=== PATIENT | female | born 1985 | race Caucasian/White ===

== ENCOUNTER → 2016-10-13 | Outpatient (CLI) | payer BC, OTHER ==
[~2016-10-13] MED LIST: ALPR0.25 PO; CETI10TA24 PO; METF10002 PO
[2016-10-13 14:52] LABS: PATH.CAST-FLAG NOT PRESENT; SPERM-FLAG NOT PRESENT; SRC-FLAG NOT PRESENT; XTAL-FLAG NOT PRESENT; YLC-FLAG NOT PRESENT
== END | disposition home or self-care (01) ==
LOC: STAR 13:27
PROVIDERS: ATTEND Obstetrics & Gynecology
DX: Z01.818 Encounter for other preprocedural examination (principal); R10.2 Pelvic and perineal pain; G89.29 Other chronic pain
CPT/HCPCS: 36415; 81001; 84703; 85025

== ENCOUNTER 2016-10-26 13:27 | Day surgery (SDC) | payer BC, OTHER ==
[~2016-10-26] VITALS: Ht 157.5 cm; Wt 65.0 kg
[2016-10-26] MEDS: FENTANYL PF 100 MCG/2ML IV PRN ×2 (09:23→09:42)
[2016-10-26] MEDS: HYDROmorphone 1 MG/ML, 1ML IV PRN ×2 (09:45→09:55)
[2016-10-26] MEDS: OXYcodone/APAP 5/325MG TABLET PO PRN ×2 (10:40→14:50)
[~2016-10-26 13:27] MED LIST changes: +ACETAMINOPHEN 650 MG/20.3 ML UDC ONE; +BUPIVACAINE/PF-EPI 0.25% 1:200K ONE; +CEFAZOLIN 1,000 MG ONE; +DEXAMETHASONE 4 MG/ML, 1ML ONE; +FENTANYL PF 100 MCG/2ML ONE; +FENTANYL PF 250 MCG/5ML ONE; +FLUORESCEIN SODIUM 500 MG/5 ML ONE; +GLYCOPYRROLATE 0.2MG/1ML ONE; +HYDROmorphone 1 MG/ML, 1ML ONE; +KETOROLAC 30 MG/1 ML ONE; +METOCLOPRAMIDE 5 MG/ML, 2ML ONE; +MIDAZOLAM 1 MG/ML, 2ML ONE; +NEOSTIGMINE 1 MG/ML, 10ML ONE; +ONDANSETRON 2MG/ML, 2ML ONE; +OXYcodone 5 MG/5 ML ORAL.SOL UDC ONE; +PROPOFOL 10 MG/ML, 20ML ONE; +PROPOFOL 10 MG/ML, 50ML ONE; +ROCURONIUM 10 MG/ML ONE; +SCOPOLAMINE PATCH, 1.5MG PATCH.TD72 TD ONE; +SILVER NITRATE STICK TP ONE
[2016-10-26] MEDS ORDERED: OXYcodone 5 MG/5 ML ORAL.SOL UDC ONE (14:45)
[2016-10-26] MEDS ORDERED: KETOROLAC 30 MG/1 ML IVPush PRN (15:00)
[2016-10-26] MEDS ORDERED: ONDANSETRON 2MG/ML, 2ML IVPush PRN ×2 (15:00→15:30)
[2016-10-26] MEDS ORDERED: IBUPROFEN 600 MG TABLET PO SCH (16:00)
[2016-10-26] MEDS ORDERED: LACTATED RINGERS 1,000 ML IV SCH (16:00)
[2016-10-26] MEDS: LACTATED RINGERS 1,000 ML IV SCH ×2 (16:02→16:04)
[2016-10-26] MEDS ORDERED: LIDOCAINE 1%, 2ML SQ PRN (16:30)
[2016-10-28 10:02] LABS: HCG UR OBC PASS
== END 2016-10-26 17:50 | disposition home or self-care (01) ==
LOC: OUT 13:27
PROVIDERS: ATTEND Obstetrics & Gynecology
DX: N80.0 Endometriosis of uterus (principal); Z90.49 Acquired absence of other specified parts of digestive tract; Z98.890 Other specified postprocedural states; E28.2 Polycystic ovarian syndrome; Z88.0 Allergy status to penicillin; Z83.3 Family history of diabetes mellitus; Z82.49 Family history of ischemic heart disease and other diseases of the circulatory system
CPT/HCPCS: 58552; 81025; 88307; J0690; J1100; J1170; J1885; J2250; J2405; J2704; J2710; J2765; J3010; J7120; J3490